=== PATIENT | female | born 1995 | race Caucasian/White ===

== ENCOUNTER 2016-05-18 08:00 | Outpatient (CLI) | payer OTHER, MEDICAID | END 2016-05-18 23:59 | DX: Z33.1 Pregnant state, incidental (principal) ==

== ENCOUNTER 2016-08-25 09:05 | Outpatient (CLI) | payer OTHER, MEDICAID | END 2016-08-25 09:06 | disposition home or self-care (01) | LOC: LAB.WCP 09:05 | PROVIDERS: ATTEND Physician Assistant Medical | DX: N39.0 Urinary tract infection, site not specified (principal) | CPT/HCPCS: 87077; 87086 ==

== ENCOUNTER 2017-04-01 09:24 | Outpatient (CLI) | payer OTHER | END 2017-04-01 23:59 | disposition critical access hospital (66) | LOC: EMS 09:24 | PROVIDERS: ATTEND Surgery | DX: S41.119A Laceration without foreign body of unspecified upper arm, initial encounter (principal); S31.119A Laceration without foreign body of abdominal wall, unspecified quadrant without penetration into peritoneal cavity, initial encounter; S71.112A Laceration without foreign body, left thigh, initial encounter; S71.111A Laceration without foreign body, right thigh, initial encounter; X78.8XXA Intentional self-harm by other sharp object, initial encounter | CPT/HCPCS: A0425; A0429 ==

== ENCOUNTER 2017-04-01 09:55 | Emergency (ER) | payer MEDICAID, OTHER ==
[2017-04-01] MEDS ORDERED: LIDOCAINE-EPINEPH-TETRACAINE 3 ML SYRINGE TOP STA (11:31)
[2017-04-01] MEDS ORDERED: TETANUS/DIPHTHERIA/PERTUSSIS 0.5 ML SYRINGE IM ONE (11:31)
[2017-04-01 12:59] LABS: HCG UR QUAL NEGATIVE
[2017-04-01 13:05] LABS: MUDS CUTOFF CONCENTRATIONS CUTOFF CONC BELOW:
[2017-04-01 13:06] LABS: AMPHETAMINE SCREEN,URINE NEGATIVE (NEGATIVE); BENZODIAZEPINES SCREEN, URINE POSITIVE (NEGATIVE); COCAINE SCREEN URINE NEGATIVE (NEGATIVE); METHADONE SCREEN, URINE NEGATIVE (NEGATIVE); METHAMPHETAMINES SCREEN, URINE NEGATIVE (NEGATIVE); OPIATE SCREEN, URINE NEGATIVE (NEGATIVE); OXYCODONE SCREEN, URINE NEGATIVE (NEGATIVE); PROPOXYPHENE SCREEN, URINE NEGATIVE (NEGATIVE); TRICYCLIC ANTIDEPRESSANT,URINE POSITIVE (NEGATIVE)
[2017-04-01] MEDS ORDERED: LIDOCAINE 1%-EPI 1:100000 20 ML MDV ONE (14:00)
--- NOTE | 2017-04-01 15:02 | ED Physician Documentation ---
PD HPI MHE - Stated complaint Stated Complaint: ABD WOUNDS, SI - Chief complaint Chief Complaint: Laceration - History obtained from History obtained from: Patient, Family () - History of Present Illness Primary symptom: Self harm - cut Timing - onset: Last night Contributing factors: Substance abuse - ETOH - Additional information Additional information: The patient is a 21-year-old female who presents with self-inflicted lacerations. She cut her thighs and abdominal wall in numerous locations last night with a razor while intoxicated with alcohol. She denies suicidal ideation. She has a history of self cutting. She has a history of depression for which she is taking antidepressant medication. She does not currently have a counselor, and has no history of psychiatric hospitalizations. Review of Systems Constitutional: denies: Fever Nose: denies: Congestion Throat: denies: Sore throat Cardiac: denies: Chest pain / pressure Respiratory: denies: Dyspnea, Cough GI: denies: Abdominal Pain, Nausea, Vomiting : denies: Dysuria Skin: reports: Laceration (s) Musculoskeletal: denies: Back pain Neurologic: denies: Altered mental status, Headache Psychiatric: reports: Depressed. 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 : None HEENT: None Psych: Eating disorder, Depression, Anxiety, Panic attacks Musculoskeletal: None Derm: None - Past Surgical History Past Surgical History: Yes General: Hiatal hernia repair HEENT: Tonsil/Adenoidectomy - Present Medications Home Medications: Ambulatory Orders Medication Instructions Recorded Confirmed Pnv95/Ferrous Fumarate/FA 1 each PO DAILY 02/26/13 02/26/13 [ Tablet] - Allergies Allergies/Adverse Reactions: Allergies Allergy/AdvReac Type Severity Reaction Status Date / Time No Known Drug Allergies Allergy Verified 02/26/13 16:39 - Living Situation Living Situation: reports: With spouse/s.o. - Social History Does the pt smoke?: No Smoking Status: Never smoker Does the pt drink ETOH?: Yes Does the pt have substance abuse?: No Substance Use and Type: Marijuana - Immunizations Immunizations are current?: No Immunizations: TDAP >10years/unknown - POLST Patient has POLST: No PD ED PE NORMAL - Vitals Vital signs reviewed: Yes (borderline hypertension initially.) - General General: Alert and oriented X 3, Well developed/nourished - HEENT HEENT: PERRL, EOMI, Pharynx benign, Other (Old faint bruising in the right periorbital region. (The patient states this is from an interaction with her goat a couple of weeks ago.)) - Neck Neck: No adenopathy, No JVD - Cardiac Cardiac: RRR, No murmur - Respiratory Respiratory: No respiratory distress, Clear bilaterally - Abdomen Abdomen: Soft, Non tender, Other (Hesitation sinclair, and a 5 cm laceration across the anterior abdomen.) - Back Back: No spinal TTP - Derm Derm: No rash - Extremities Extremities: Other (Multiple lacerations including for long lacerations on the lateral aspect of the left thigh, 2 on the medial aspect of the left thigh, long lacerations over the left iliac wing, as well as lacerations over the right lateral thigh and right iliac wing.) Results - Vitals Vitals: Oxygen O2 Source Room air - Labs Labs: Laboratory Tests 04/01/17 04/01/17 04/01/17 10:51 12:48 12:57 Ur Specific [place] 1.025 Urine HCG, Qual NEGATIVE Urine Opiates Screen NEGATIVE Ur Oxycodone Screen NEGATIVE Urine Methadone Screen NEGATIVE Ur Propoxyphene Screen NEGATIVE Ur Barbiturates Screen NEGATIVE Ur Tricyclics Screen POSITIVE H Ur Phencyclidine Scrn NEGATIVE Ur Amphetamine Screen NEGATIVE U Methamphetamines Scrn NEGATIVE U Benzodiazepines Scrn POSITIVE H Urine Cocaine Screen NEGATIVE U Cannabinoids Screen POSITIVE H Ethyl Alcohol < 5.0 Procedures - Laceration (location) left iliac crest Length in cm: 20 (4 parallel lacerations) Wound type: Linear, Into subcut fat, Clean Neurovascular status: Sensory intact, Vascular intact Anesthesia: Lidocaine 1% with epi Wound Preparation: Hibiclens, Irrigated copiously NS, Wound explored, To the base. No: FB identified Skin layer closure: Charleen (35) Other: Patient tolerated well, No complications, Neurovascular intact, Dressing applied, Tetanus booster given Complexity: Intermediate Left lateral thigh Length in cm: 15 (Multiple parallel lacerations) Wound type: Linear, Into subcut fat, Clean Neurovascular status: Sensory intact, Vascular intact Anesthesia: LET Wound Preparation: Hibiclens, Irrigated copiously NS Skin layer closure: Steri strips Other: Patient tolerated well, No complications, Neurovascular intact, Dressing applied, Tetanus booster given Complexity: Simple Left medial thigh Length in cm: 11 (Multiple parallel lacerations) Wound type: Linear, Into subcut fat Neurovascular status: Sensory intact, Vascular intact Anesthesia: LET Skin layer closure: Steri strips Other: Patient tolerated well, No complications, Neurovascular intact, Dressing applied, Tetanus booster given Complexity: Simple Right medial thigh Length in cm: 10 (Multiple parallel lacerations) Wound type: Linear Neurovascular status: Sensory intact, Vascular intact Anesthesia: LET Wound Preparation: Hibiclens, Irrigated copiously NS Skin layer closure: Steri strips Other: Patient tolerated well, No complications, Neurovascular intact, Dressing applied, Tetanus booster given Complexity: Simple Right lateral thigh Length in cm: 15 (multiple parallel lacerations) Wound type: Linear, Into subcut fat Neurovascular status: Sensory intact, Vascular intact Anesthesia: LET Wound Preparation: Hibiclens, Irrigated copiously NS Skin layer closure: Steri strips Other: Patient tolerated well, No complications, Neurovascular intact, Dressing applied, Tetanus booster given Complexity: Simple Right iliac wing Length in cm: 15 (multiple parallel lacerations) Wound type: Linear, Into subcut fat Neurovascular status: Sensory intact, Vascular intact Anesthesia: LET Wound Preparation: Hibiclens, Irrigated copiously NS Skin layer closure: Steri strips Other: Patient tolerated well, No complications, Neurovascular intact, Dressing applied, Tetanus booster given Complexity: Simple (an) Anterior abdomen Length in cm: 8 (2 parallel lacerations) Wound type: Linear, Into subcut fat Neurovascular status: Sensory intact, Vascular intact Anesthesia: LET Wound Preparation: Hibiclens, Irrigated copiously NS Skin layer closure: Steri strips Other: Patient tolerated well, No complications, Neurovascular intact, Dressing applied, Tetanus booster given Complexity: Simple PD MEDICAL DECISION MAKING - ED course Complexity details: reviewed results, re-evaluated patient, considered differential, d/w patient, d/w family, d/w product support consultant ED course: The patient's presentation is significant for numerous parallel linear lacerations that were self-inflicted. Locations included anterior abdomen, both iliac wings, and both thighs, both medially and laterally. The patient has a history of self cutting, but this is the most she has ever cut at one time , and she states it was because she was intoxicated with alcohol last night. She denies suicidal ideation. Her , who accompanies her in the emergency department, appears supportive. Treatment in the emergency department included repair of the numerous lacerations, after topical lidocaine and thorough cleaning. The deeper lacerations were repaired with charleen, and the majority were repaired with Steri-Strips. She was evaluated by the nuclear medical tech who agrees that outpatient follow-up and counseling is appropriate. Contact information for local resources were provided. I discussed with them appropriate wound care, timing for removal of charleen, as well as potentially worrisome signs or symptoms that should prompt reevaluation in the emergency department. Departure - Departure Disposition: 01 Home, Self Care Clinical Impression: Self mutilating behavior, Laceration, Alcohol abuse Condition: Stable Instructions: ED Laceration Ext Sutr Stap Tape Follow-Up: Mirella Brito PA-C [Primary Care Provider] - Comments: Keep the wounds clean. Follow-up for removal of charleen in 10-12 days. Follow up for outpatient counseling as per discussion with nuclear medical tech. Avoid drinking alcohol. Return to the emergency department if you develop any sign of infection, become increasingly depressed or suicidal, or otherwise worsening symptoms. Discharge Date/Time: 04/01/17 15:28
[2017-04-01 15:11] VITALS: BP 148/90
[2017-04-01] MEDS ORDERED: IBUPROFEN 800 MG TABLET PO STA (15:14)
== END 2017-04-01 15:28 | disposition home or self-care (01) ==
LOC: EDUNIT# → ED 09:55
DX: S71.112A Laceration without foreign body, left thigh, initial encounter (principal); S71.111A Laceration without foreign body, right thigh, initial encounter; S31.114A Laceration without foreign body of abdominal wall, left lower quadrant without penetration into peritoneal cavity, initial encounter; S31.113A Laceration without foreign body of abdominal wall, right lower quadrant without penetration into peritoneal cavity, initial encounter; S71.012A Laceration without foreign body, left hip, initial encounter; S71.011A Laceration without foreign body, right hip, initial encounter; X78.8XXA Intentional self-harm by other sharp object, initial encounter; Y92.019 Unspecified place in single-family (private) house as the place of occurrence of the external cause; F32.9 Major depressive disorder, single episode, unspecified; F10.10 Alcohol abuse, uncomplicated; Z23 Encounter for immunization
CPT/HCPCS: 12005; 36415; 80306; 80320; 81025; 90471; 90715; 99283; 99284; A9270

== ENCOUNTER 2018-02-16 12:40 | Emergency (ER) | payer OTHER ==
[2018-02-16] MEDS ORDERED: ONDANSETRON 4 MG/2 ML VIAL IVP STA (13:09)
[2018-02-16] MEDS ORDERED: KETOROLAC 30 MG/ML VIAL IVP STA (13:09)
[2018-02-16] MEDS ORDERED: SODIUM CHLORIDE 0.9% 1,000 ML IV ONE (13:09)
--- NOTE | 2018-02-16 13:12 | ED Physician Documentation ---
PD HPI ABD PAIN - Stated complaint Stated Complaint: FLU LIKE SYMPTOMS - Chief complaint Chief Complaint: Abd Pain - History obtained from History obtained from: Patient - History of Present Illness Timing - onset: Today (This is a previously healthy 22-year-old woman who is homosexual so doubts any chance of . She felt a little ill last night but started vomiting this morning and has vomited innumerable times since 7 AM. There is no diarrhea or hematochezia. She has had multiple family members who have been sick but more with URIs then GI illnesses. She does have a headache but that came after the vomiting as did some upper abdominal pain. She has had fevers and chills.) Review of Systems Ten Systems: 10 systems reviewed and negative Constitutional: reports: Fever, Chills, Fatigue Nose: reports: Rhinorrhea / runny nose Cardiac: denies: Chest pain / pressure, Palpitations Respiratory: denies: Dyspnea, Cough GI: reports: Abdominal Pain, Nausea, Vomiting. 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 : None HEENT: None Psych: Eating disorder, Depression, Anxiety, Panic attacks Musculoskeletal: None Derm: None - Past Surgical History Past Surgical History: Yes General: Hiatal hernia repair HEENT: Tonsil/Adenoidectomy - Present Medications Home Medications: Ambulatory Orders Medication Instructions Recorded Confirmed Pnv95/Ferrous Fumarate/FA 1 each PO DAILY 02/26/13 02/26/13 [ Tablet] Ibuprofen [Motrin] 800 mg PO Q8H PRN #30 tablet 02/16/18 Ondansetron Odt [Zofran] 4 mg TL Q6H PRN #10 tablet 02/16/18 - Allergies Allergies/Adverse Reactions: Allergies Allergy/AdvReac Type Severity Reaction Status Date / Time No Known Drug Allergies Allergy Verified 02/26/13 16:39 - Social History Does the pt smoke?: No Smoking Status: Never smoker Does the pt drink ETOH?: Yes Does the pt have substance abuse?: No - Family History Family history: reports: Non contributory - Immunizations Immunizations are current?: No Immunizations: TDAP >10years/unknown - POLST Patient has POLST: No PD ED PE NORMAL - Vitals Vital signs reviewed: Yes (Initial heart rate 150, on my exam closer to 120) - General General: Alert and oriented X 3, No acute distress - HEENT HEENT: PERRL, EOMI, Pharynx benign - Neck Neck: Supple, no meningeal sign, No bony TTP - Cardiac Cardiac: Other (Tachycardic but regular without murmur) - Respiratory Respiratory: No respiratory distress, Clear bilaterally - Abdomen Abdomen: Normal bowel sounds, Soft, Non tender - Back Back: No CVA TTP, No spinal TTP - Derm Derm: No rash - Extremities Extremities: No edema, No calf tenderness / cord - Neuro Neuro: Alert and oriented X 3, Normal speech Results - Vitals Vitals: Vital Signs - 24 hr 02/16/18 02/16/18 02/16/18 12:48 13:24 14:11 Temperature 37.6 C H 37 C Heart Rate 150 H 111 H 105 H Respiratory 15 16 15 Rate Blood Pressure 130/79 119/76 126/82 H O2 Saturation 97 98 99 Oxygen O2 Source Room air - Labs Labs: Laboratory Tests 02/16/18 02/16/18 02/16/18 13:08 13:08 13:14 WBC 6.7 RBC 4.71 Hgb 15.2 Hct 44.6 MCV 94.6 MCH 32.2 H MCHC 34.0 RDW 13.6 Plt Count 179 MPV 8.5 Neut # (Auto) 6.4 Lymph # (Auto) 0.1 L [place] # (Auto) 0.2 Eos # (Auto) 0.0 Baso # (Auto) 0.0 Absolute Nucleated RBC 0.00 Nucleated RBC % 0.0 Sodium Potassium Chloride Carbon Dioxide Anion Gap BUN Creatinine Estimated GFR (MDRD) Glucose Lactic Acid Calcium Total Bilirubin AST ALT Alkaline Phosphatase Total Protein Albumin Globulin Albumin/Globulin Ratio Lipase Urine Color YELLOW Urine Clarity CLEAR Urine pH 6.0 Ur Specific [place] 1.025 1.025 Urine Protein NEGATIVE Urine Glucose (UA) NEGATIVE Urine Ketones NEGATIVE Urine Occult Blood NEGATIVE Urine Nitrite NEGATIVE Urine Bilirubin NEGATIVE Urine Urobilinogen 0.2 (NORMAL) Ur Leukocyte Esterase NEGATIVE Ur Microscopic Review NOT INDICATED Urine Culture Comments NOT INDICATED Urine HCG, Qual NEGATIVE Influenza A (Rapid) Influenza B (Rapid) 02/16/18 02/16/18 02/16/18 13:14 13:14 13:14 WBC RBC Hgb Hct MCV MCH MCHC RDW Plt Count MPV Neut # (Auto) Lymph # (Auto) [place] # (Auto) Eos # (Auto) Baso # (Auto) Absolute Nucleated RBC Nucleated RBC % Sodium 139 Potassium 3.7 Chloride 106 Carbon Dioxide 20 L Anion Gap 13.0 BUN 7 Creatinine 0.7 Estimated GFR (MDRD) 105 Glucose 132 H Lactic Acid 1.8 Calcium 9.0 Total Bilirubin 0.5 AST 32 ALT 33 Alkaline Phosphatase 55 Total Protein 7.1 Albumin 4.4 Globulin 2.7 Albumin/Globulin Ratio 1.6 Lipase 40 Urine Color Urine Clarity Urine pH Ur Specific [place] Urine Protein Urine Glucose (UA) Urine Ketones Urine Occult Blood Urine Nitrite Urine Bilirubin Urine Urobilinogen Ur Leukocyte Esterase Ur Microscopic Review Urine Culture Comments Urine HCG, Qual Influenza A (Rapid) Negative Influenza B (Rapid) Negative PD MEDICAL DECISION MAKING - ED course ED course: Is a 22-year-old woman with vomiting and an otherwise flulike illness with an impressively high heart rate in triage which had actually already significantly resolved prior to any intervention and after IV fluids and Zofran her heart rate was in the 90s. Her exam remained otherwise negative and her diagnostics were within normal limits. There is no clinical evidence of meningitis. Departure - Departure Disposition: 01 Home, Self Care Clinical Impression: Viral syndrome Vomiting Qualifiers: Vomiting type: unspecified Vomiting Intractability: non-intractable Nausea presence: with nausea Qualified Code(s): R11.2 - Nausea with vomiting, unspecified Condition: Good Record reviewed to determine appropriate education?: Yes Instructions: ED Nausea Vomiting, ED Viral Syndrome Prescriptions: Ibuprofen [Motrin] 800 mg PO Q8H PRN #30 tablet PRN Reason: PAIN &/OR FEVER Ondansetron Odt [Zofran] 4 mg TL Q6H PRN #10 tablet PRN Reason: Nausea / Vomiting Comments: Return tomorrow if not better, anytime if worse or if new symptoms develop. Your blood pressure was elevated today on check into the emergency department. This does not mean that you have hypertension, it is a common phenomenon to come to the emergency department and have elevated blood pressure. I recommend that you see your primary care physician within the week to have it rechecked when you are feeling better.
[2018-02-16 13:45] LABS: BASOPHILS % (AUTO) 0.1 %; EOSINOPHILS % (AUTO) 0.5 %; HGB - HEMOGLOBIN 15.2 g/dL (12.0-16.0); LYMPHOCYTES # (AUTO) 0.1 10^3/uL (1.5-3.5); LYMPHOCYTES % (AUTO) 2.1 %; MEAN CORPUSCULAR HEMOGLOBIN 32.2 pg (27.0-31.0); MEAN CORPUSCULAR VOLUME 94.6 fL (81.0-99.0); MEAN PLATELET VOLUME 8.5 fL (7.9-10.8); MONOCYTES # (AUTO) 0.2 10^3/uL (0.0-1.0); MONOCYTES % (AUTO) 2.3 %; NEUTROPHILS # (AUTO) 6.4 10^3/uL (1.5-6.6); PLT - PLATELET COUNT 179 10^3/uL (130-450); RED BLOOD COUNT 4.71 10^6/uL (4.20-5.40); RED CELL DISTRIBUTION WIDTH 13.6 % (12.0-15.0); WHITE BLOOD COUNT 6.7 x10^3/uL (4.8-10.8)
[2018-02-16 13:48] LABS: ALBUMIN 4.4 g/dL (3.2-5.5); ALBUMIN/GLOBULIN RATIO 1.6 (1.0-2.2); BILIRUBIN,TOTAL 0.5 mg/dL (0.2-1.0); CREATININE 0.7 mg/dL (0.4-1.0); TOTAL PROTEIN 7.1 g/dL (6.7-8.2)
[2018-02-16 14:26] LABS: MUDS CUTOFF CONCENTRATIONS CUTOFF CONC BELOW:
[2018-02-16 14:30] LABS: BILIRUBIN,URINE NEGATIVE (NEGATIVE); GLUCOSE, URINE (UA) NEGATIVE (NEGATIVE); KETONES,URINE (UA) NEGATIVE (NEGATIVE); LEUKOCYTE ESTERASE, URINE NEGATIVE (NEGATIVE); NITRITE,URINE NEGATIVE (NEGATIVE); OCCULT BLOOD,URINE NEGATIVE (NEGATIVE); PROTEIN,URINE NEGATIVE (NEGATIVE); UROBILINOGEN,URINE 0.2 (NORMAL) E.U./dL (NORMAL)
[2018-02-16 14:33] LABS: CLARITY,URINE CLEAR (CLEAR); HCG UR QUAL NEGATIVE
[2018-02-16 14:47] LABS: AMPHETAMINE SCREEN,URINE NEGATIVE (NEGATIVE); BENZODIAZEPINES SCREEN, URINE NEGATIVE (NEGATIVE); COCAINE SCREEN URINE NEGATIVE (NEGATIVE); METHADONE SCREEN, URINE NEGATIVE (NEGATIVE); METHAMPHETAMINES SCREEN, URINE NEGATIVE (NEGATIVE); OPIATE SCREEN, URINE NEGATIVE (NEGATIVE); OXYCODONE SCREEN, URINE NEGATIVE (NEGATIVE); PROPOXYPHENE SCREEN, URINE NEGATIVE (NEGATIVE); TRICYCLIC ANTIDEPRESSANT,URINE NEGATIVE (NEGATIVE)
[2018-02-16 14:58] VITALS: BP 125/78
== END 2018-02-16 14:59 | disposition home or self-care (01) ==
LOC: ED 12:40
DX: B34.9 Viral infection, unspecified (principal); R11.2 Nausea with vomiting, unspecified; R03.0 Elevated blood-pressure reading, without diagnosis of hypertension
CPT/HCPCS: 36415; 80053; 80306; 81001; 81003; 81025; 83605; 83690; 85025; 87040; 87086; 87275; 87276; 96374; 99283; 99284